=== PATIENT | female | born 1960 | race Caucasian/White ===

== ENCOUNTER → 2020-06-27 | Outpatient (CLI) | payer OTHER ==
--- NOTE | 2020-06-27 16:31 | RAD ---
CERVICAL SPINE 2-3V 06/27/2020 11:43 AM INDICATION: Cervicalgia COMPARISON: None available. TECHNIQUE: AP, lateral and odontoid views of cervical spine are provided. FINDINGS/ IMPRESSION: 1. There is straightening of the normal cervical lordosis. No significant spondylolisthesis. Mild osteopenia. 2. No acute fractures identified. There is osseous fusion of C2-C3 fusion of the facet joints. No prevertebral edema. Cervical spine is visualized from the craniocervical junction through the cervicothoracic junction. 3. There is mild disc height loss at C6-C7 with anterior marginal osteophyte. Mild facet arthropathy. Mild uncovertebral joint disease noted at C5-C6 and C6-C7. Electronically signed by: Rayne Eisenberg MD (06/27/2020 4:28 PM) L[facility]IER
== END | disposition home or self-care (01) ==
LOC: RAD 11:33
PROVIDERS: ATTEND Nurse Practitioner
DX: M47.812 Spondylosis without myelopathy or radiculopathy, cervical region (principal); M46.92 Unspecified inflammatory spondylopathy, cervical region; M25.78 Osteophyte, vertebrae; M43.22 Fusion of spine, cervical region; M85.88 Other specified disorders of bone density and structure, other site; M40.50 Lordosis, unspecified, site unspecified
CPT/HCPCS: 72040

== ENCOUNTER → 2021-08-31 | Day surgery (SDC) | payer OTHER ==
[~2021-08-31] VITALS: Ht 157.5 cm; Wt 95.0 kg
[~2021-08-31] MED LIST: ALEN70TA71 PO; ATOR20TA58 PO; BUDE10.22 IH; DONE10TA7 PO; LANS30CA PO; LIDOCAINE 2% PF 5 ML VIAL. ONE; MIRT-7 PO; PROPOFOL 10 MG/ML (20ML) VIAL. IV ONE; TRAZ-118 PO; VORT5TAB PO
[2021-08-31 12:56] VITALS: BP 176/76
[2021-08-31] MEDS: IV RINGERS,LACTATED 1000ML 1,000 ML IV SCH (13:15)
--- NOTE | 2021-08-31 13:42 | PDOC4 ---
PROCEDURE Procedure EGD/dilation Indication: dysphagia Meds: per anesthesia Findings: E--Healed reflux at 30cm. No clear Cazares's. G--Moderate HH. D--Normal to second portion. --Dilated with 52F oakley w/o resistance. Chavez. well. IMP: GERD HH Motility issue? REC: Resume meds, diet. F/u in 2 weeks. If still dysphagia, barium swallow. At some point, needs colonoscopy. MARIJA GARCIA MD Aug 31, 2021 13:42
[2021-08-31 13:57] VITALS: BP 145/71
== END | disposition home or self-care (01) ==
LOC: ENDOS 12:27
PROVIDERS: ATTEND Internal Medicine Gastroenterology
DX: R13.10 Dysphagia, unspecified (principal); K21.00 Gastro-esophageal reflux disease with esophagitis, without bleeding; K44.9 Diaphragmatic hernia without obstruction or gangrene; K31.89 Other diseases of stomach and duodenum; I10 Essential (primary) hypertension; E78.00 Pure hypercholesterolemia, unspecified; J44.9 Chronic obstructive pulmonary disease, unspecified; K21.9 Gastro-esophageal reflux disease without esophagitis; M19.90 Unspecified osteoarthritis, unspecified site; F41.9 Anxiety disorder, unspecified; F32.9 Major depressive disorder, single episode, unspecified; Z90.710 Acquired absence of both cervix and uterus; Z90.49 Acquired absence of other specified parts of digestive tract; Z98.890 Other specified postprocedural states; Z79.899 Other long term (current) drug therapy; Z87.891 Personal history of nicotine dependence
CPT/HCPCS: 43235; 43450; J2704